=== PATIENT | female | born 1980 | race Caucasian/White ===

== ENCOUNTER 2019-10-14 14:28 | Emergency (ER) | payer OTHER ==
[~2019-10-14] VITALS: Ht 157.5 cm; Wt 81.7 kg
[~2019-10-14 14:28] MED LIST: ACETAMINOPHEN325 M1 PO; AMOXICILLIN875 MG PO; BACTRIM DS TAB1 EACH PO; COLACE100 MG PO; FIORICET 50-321 EACH PO; LEVAQUIN 500 M500 M1 PO; MUCINEX TA600 MG/TA1 PO; NORCO 5-325 TA1 EACH PO; SYNTHROID125 MCG PO; SYNTHROID150 MCG PO; TESSALON PERLE100 MG PO; VENTOLIN HFA INH
[2019-10-14] MEDS ORDERED: LIDODERM1 EACH TRANSDERM (16:43)
[2019-10-14] MEDS ORDERED: FLEXERIL PO (16:43)
[2019-10-14] MEDS ORDERED: MEDROLDOSEPACK PO (16:43)
[2019-10-14] MEDS ORDERED: TYLENOL WITH CO1 TA1 PO (16:43)
[2019-10-14 16:52] VITALS: BP 150/82
== END 2019-10-14 16:52 | disposition home or self-care (01) ==
LOC: M.ERS 14:28
DX: S13.4XXA Sprain of ligaments of cervical spine, initial encounter (principal); M54.6 Pain in thoracic spine; R51 Headache; Z88.1 Allergy status to other antibiotic agents; Z88.0 Allergy status to penicillin; V49.88XA Car occupant (driver) (passenger) injured in other specified transport accidents, initial encounter; Y93.89 Activity, other specified; Y92.89 Other specified places as the place of occurrence of the external cause; Y99.8 Other external cause status

== ENCOUNTER 2021-05-21 12:04 | Emergency (ER) | payer OTHER ==
[~2021-05-21] VITALS: Ht 157.5 cm; Wt 80.3 kg
[~2021-05-21 12:04] MED LIST changes: +FLEXERIL PO; +LIDODERM1 EACH TRANSDERM; +MEDROLDOSEPACK PO; +TYLENOL WITH CO1 TA1 PO
[2021-05-21] MEDS ORDERED: MEDROL DOSPAK21 TA1 PO (12:19)
[2021-05-21] MEDS ORDERED: DORYX MPC120 MG PO (12:19)
[2021-05-21] MEDS ORDERED: TRAMADOL 50 MG50 MG PO (13:15)
[2021-05-21 13:35] VITALS: BP 141/90
== END 2021-05-21 13:37 | disposition home or self-care (01) ==
LOC: M.ERS 12:04
DX: J06.9 Acute upper respiratory infection, unspecified (principal); Z20.822 Contact with and (suspected) exposure to COVID-19; R51.9 Headache, unspecified; Z79.899 Other long term (current) drug therapy; Z88.0 Allergy status to penicillin